=== PATIENT | female | born 1950 | race Caucasian/White ===

== ENCOUNTER 2017-05-04 09:07 | Emergency (ER) | payer MEDICARE ==
[~2017-05-04] VITALS: Ht 162.6 cm; Wt 91.9 kg
[~2017-05-04 09:07] MED LIST: ADVAI100I PO; CELE200C PO; CODE30TA2 PO; FLUT1SPR9; HYDR-3533 PO; LEVO.025 PO; LOSA50TA PO; PRED5TAB PO; ROBA500T PO; SERT100 PO
[2017-05-04 09:13] VITALS: BP 147/74; PULSE 90; RESP 16; TEMP 98.6; O2SAT 97
[2017-05-04] MEDS ORDERED: LOSA50TA PO (09:34)
[2017-05-04] MEDS ORDERED: LEVO25TA4 PO (09:34)
[2017-05-04] MEDS ORDERED: PRIM50TA5 PO (09:34)
[2017-05-04] MEDS ORDERED: ADVA115A INH (09:34)
[2017-05-04] MEDS ORDERED: SERT-129 PO (09:34)
[2017-05-04] MEDS ORDERED: BACT800T5 PO (09:48)
--- NOTE | 2017-05-04 09:54 | PD ---
HPI Chief Complaint: Skin Problem Time Seen by Provider: 09:22 Travel History International Travel<30 days: No Contact w/Intl Traveler<30days: No Traveled to known affect area: No History of Present Illness HPI The patient was seen and examined in the presence of the nurse. This patient complains of a rash that she's been dealing with for 2 years now. In crops up in various parts of her body. She is seen for different dermatologists for this and has no diagnosis. She's had 2 biopsies and culturing in the past. Worst area right now as in the left ankle. It's red and inflamed. She denies fever or injury. She denies picking at the lesions. Symptoms severity is moderate. PFSH Past Medical History Asthma: Yes Autoimmune Disease: Yes Anxiety: Yes Cardiovascular Problems: Yes (htn on meds) Diminished Hearing: No Hypertension: Yes Immune Disorder: Yes (lupus) Respiratory: Yes (asthma) Integumentary: Yes (open areas) ?: Not Past Surgical History Cholecystectomy: Yes Hysterectomy: Yes Social History Alcohol Use: Yes (SOC) Tobacco Use: No Allergies-Medications (Allergen,Severity, Reaction): Coded Allergies: cefepime (Verified Allergy, Intermediate, rash, 05/04/17) Uncoded Allergies: CEFEPIME (Allergy, Unknown, RASH, 02/03/16) Reported Meds & Prescriptions Reported Meds & Active Scripts Active Bactrim DS (Sulfamethoxazole-Trimethoprim) 800-160 Mg Tab 1 Tab PO BID Reported Losartan (Losartan Potassium) 50 Mg Tab 50 Mg PO DAILY Primidone 50 Mg Tab 50 Mg PO BID Advair Hfa 12 GM Inh (Fluticasone-Salmeterol 12 GM Inh) 115-21 Mcg/Act Aer 2 Puff INH BID Sertraline (Sertraline HCl) 100 Mg Tab 200 Mg PO DAILY Levothyroxine (Levothyroxine Sodium) 25 Mcg Tab 25 Mcg PO DAILY Review of Systems General / Constitutional: No: Fever Eyes: No: Visual changes HENT: No: Headaches Cardiovascular: No: Chest Pain or Discomfort Respiratory: No: Shortness of Breath Gastrointestinal: No: Abdominal Pain Genitourinary: No: Dysuria Musculoskeletal: No: Pain Skin: Positive Rash Neurologic: No: Weakness Psychiatric: No: Depression Endocrine: No: Polydipsia Hematologic/Lymphatic: No: Easy Bruising Physical Exam Narrative GASTROINTESTINAL: Abdomen soft, non-tender, nondistended. Positive bowel sounds. No hepato-splenomegaly, or palpable masses. No guarding. NECK: Symmetrical appearance, midline trachea. No mass or crepitus. Thyroid without enlargement, tenderness, or mass. Skin: Scattered lesions on the face and extremities and torso Left ankle: There is no ulcerated wound with yellow fibrinous coating on it No active drainage or fluctuance. Good range of motion left ankle without pain Data Data Last Documented VS Vital Signs Date Time Temp Pulse Resp B/P (MAP) Pulse Ox O2 Delivery O2 Flow Rate FiO2 05/04/17 09:13 98.6 90 16 147/74 (98) 97 Orders Orders Wound Culture And Gram Stain (05/04/17 09:47) MDM Medical Decision Making Medical Screen Exam Complete: Yes Emergency Medical Condition: Yes Medical Record Reviewed: Yes Differential Diagnosis Eczema, dermatitis, self-inflicted lesions Narrative Course I have reviewed the patient's electronic medical record. Concerned the patient may be picking at her skin and either causing or aggravating lesions. She vehemently denies this. denies this. Apparently cultures and multiple biopsies in the past have revealed no cause of this. The left ankle lesions look secondarily infected. I've written some Bactrim DS. Patient is concerned because she had some GI bleeding in the past that got blamed on an antibiotic. She try the antibiotic and advised her to take some acid blocking medication in conjunction. Follow-up with primary care and dermatology. I obtained a wound culture and Gram stain of the left ankle lesion Diagnosis Primary Impression: Chronic pruritic rash in adult Additional Impression: Secondary infection of skin Additional Instructions: The patient was advised to follow up with their physician and return if they worsen. Med/Other Pt SpecificInfo: Prescription(s) given Scripts Sulfamethoxazole-Trimethoprim (Bactrim DS) 800-160 Mg Tab 1 TAB PO BID for Infection, #20 TAB 0 Refills Prov: Rober Gutierrez MD 05/04/17 Disposition: 01 DISCHARGE HOME Condition: Stable Rober Gutierrez MD May 04, 2017 09:54
== END 2017-05-04 10:06 | disposition home or self-care (01) ==
LOC: PHED 09:07
DX: L29.8 Other pruritus (principal); R21 Rash and other nonspecific skin eruption; L08.9 Local infection of the skin and subcutaneous tissue, unspecified; J45.909 Unspecified asthma, uncomplicated; I10 Essential (primary) hypertension; M32.9 Systemic lupus erythematosus, unspecified
CPT/HCPCS: 86403; 87070; 99283